=== PATIENT | female | born 1935 | race Caucasian/White ===

== ENCOUNTER → 2018-08-29 | Outpatient (CLI) | payer OTHER ==
[~2018-08-29] MED LIST: LIDOCAINE 1% 300 MG/30 ML SDV ONE
== END ==
LOC: FIMAGING 12:07
PROVIDERS: ATTEND Otolaryngology
PROC: 0CB83ZX Excision of Right Parotid Gland, Percutaneous Approach, Diagnostic (ICD-10-PCS; principal; 2018-08-29)
DX: D37.030 Neoplasm of uncertain behavior of the parotid salivary glands (principal)